=== PATIENT | female | born 1980 | race Caucasian/White ===

== ENCOUNTER 2016-10-12 18:44 | Emergency (ER) | payer BC ==
[2016-10-12] MEDS ORDERED: IBUPROFEN 400 MG TABLET PO ONE (20:02)
[2016-10-12] MEDS ORDERED: IBUPROFEN 400 MG TABLET ONE (20:13)
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
[2016-10-12 20:51] VITALS: BP 123/81
== END 2016-10-12 20:50 | disposition home or self-care (01) ==
LOC: ER 18:44
DX: S80.11XA Contusion of right lower leg, initial encounter (principal); Z72.0 Tobacco use

== ENCOUNTER 2017-05-22 17:08 | Emergency (ER) | payer BC ==
[2017-05-22 17:16] VITALS: BP 114/58
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
== END 2017-05-22 18:00 | disposition home or self-care (01) ==
LOC: ER 17:08
DX: S83.91XA Sprain of unspecified site of right knee, initial encounter (principal); F17.200 Nicotine dependence, unspecified, uncomplicated